=== PATIENT | male | born 1980 | race Caucasian/White ===

== ENCOUNTER 2016-06-23 14:19 | Emergency (ER) | payer OTHER | END 2016-06-23 15:07 | disposition left against medical advice (07) | LOC: ER 14:19 | DX: N36.8 Other specified disorders of urethra (principal); Z53.21 Procedure and treatment not carried out due to patient leaving prior to being seen by health care provider ==

== ENCOUNTER 2019-03-08 05:04 | Emergency (ER) | payer OTHER ==
[~2019-03-08] VITALS: Ht 172.7 cm; Wt 104.3 kg
[2019-03-08 06:37] LABS: Urine Bacteria FEW /hpf (None Seen); Urine Blood TRACE /uL (Negative); Urine Mucus FEW (None Seen); Urine Specific Gravity 1.021 (1.001-1.035); Urine Sperm PRESENT /hpf (None Seen); Urine WBC 4 /hpf (0 - 3)
[2019-03-08 10:15] VITALS: BP 126/84
== END 2019-03-08 10:25 | disposition home or self-care (01) ==
LOC: ER 05:04 → EDBD 05:04 → ER 10:25
DX: R33.9 Retention of urine, unspecified (principal)
CPT/HCPCS: 51702; 81001